=== PATIENT | male | born 1980 ===

== ENCOUNTER 2019-04-17 21:54 | Emergency (ER) | payer SELFPAY ==
[~2019-04-17] VITALS: Ht 172.7 cm; Wt 72.6 kg
[2019-04-18 00:13] VITALS: Ht 172.7 cm; Wt 72.6 kg
[2019-04-18 01:28] LABS: microscopic required? NO
[2019-04-18 01:35] LABS: CALCIUM 9.4 mg/dL (8.5-10.1); CARBON DIOXIDE 27.4 mmol/L (21-32); CHLORIDE SERUM 104 mmol/L (98-107); CREATININE SERUM 0.8 mg/dL (0.7-1.3); GFR1 > 60 mL/min; GLUCOSE SERUM 102 mg/dL (74-106); POTASSIUM SERUM 3.8 mmol/L (3.5-5.1); SODIUM SERUM 141 mmol/L (136-145)
[2019-04-18 01:41] LABS: ALBUMIN 3.5 g/dL (3.4-5.0); ALKALINE PHOSPHATASE 127 U/L (46-116); ALT/SGPT 295 U/L (16-63); AST/SGOT 468 U/L (15-37); BILIRUBIN TOTAL 0.44 mg/dL (0.20-1.00); LIPASE 585 IU/L (73-393)
[2019-04-18 01:57] LABS: BASOPHIL % 0.3 % (0-2); PLATELET COUNT 287 x10^3mcL (130-400); RED CELL DISTRIBUTION WIDTH 12.4 % (11.5-14.5)
[2019-04-18 01:59] LABS: UA SPECIFIC GRAVITY 1.015 (1.005-1.035); urine erythrocyte NEGATIVE (NEGATIVE)
[2019-04-18 05:05] VITALS: BP 104/65
== END 2019-04-18 06:58 ==
LOC: ED 21:54
PROVIDERS: Emergency Medicine
DX: R10.13 Epigastric pain (principal); R74.0 Nonspecific elevation of levels of transaminase and lactic acid dehydrogenase [LDH]; R74.8 Abnormal levels of other serum enzymes; F32.9 Major depressive disorder, single episode, unspecified
CPT/HCPCS: 36415